=== PATIENT | female | born 1985 | race Caucasian/White ===

== ENCOUNTER 2021-06-17 12:58 | Outpatient (CLI) | payer OTHER, SELFPAY ==
--- NOTE | ~2021-06-17 | MMUS_ITS ---
EXAMINATION: MM diagnostic sonja BI w ila, US breast RT complete HISTORY: Palpable right breast lump TECHNIQUE: Additional 3-D tomosynthesis images of the breasts were performed and synthetic 2-D images were generated. CAD analysis was submitted and interpreted. High resolution complete right breast ul trasound was performed. COMPARISON: None BREAST PARENCHYMAL COMPOSITION: The breasts are extremely dense, which lowers the sensitivity of mamm ography. FINDINGS: MAMMOGRAPHIC FINDINGS: There are no suspicious masses, calcifications or architectural distortion in the right breast to sug gest malignancy. ULTRASOUND: Limited right breast ultrasound: At 2:00, 3 cm from the nipple, there is a 4 mm cyst. No suspicious m asses are identified in the right breast to suggest malignancy. IMPRESSION: 1. No evidence for malignancy in either breast. 2. Recommend follow-up clinical management for palpable right breast abnormality. Recommend follow-up mammogram at age 40, unless earlier clinically indicated. BI-RADS Category 2: Benign finding(s). Reviewed, dictated and finalized at location A. IMPRESSION: 1. No evidence for malignancy in either breast. 2. Recommend follow-up clinical management for palpable right breast abnormalit y. Recommend follow-up mammogram at age 42, unless earlier clinically indicated . BI-RADS Category 2: Benign finding(s).
== END 2021-06-17 12:59 | disposition home or self-care (01) ==
PROVIDERS: PCP Student in an Organized Health Care Education/Training Program; Visit Provider Student in an Organized Health Care Education/Training Program
DX: N63.10 Unspecified lump in the right breast, unspecified quadrant (principal); N60.01 Solitary cyst of right breast
CPT/HCPCS: 76641; 77062; 77066; G0279

== ENCOUNTER 2022-12-15 11:09 | Outpatient (CLI) | payer OTHER, SELFPAY ==
[2022-12-15 11:59] LABS: Beta HCG Quantitative 52.79 mIU/ML
[2022-12-21 22:05] LABS: Progesterone 13.7 ng/mL (***)
== END 2022-12-15 11:10 | disposition home or self-care (01) ==
LOC: ANHLAB 11:10
PROVIDERS: PCP Student in an Organized Health Care Education/Training Program; Visit Provider Obstetrics & Gynecology
DX: O09.299 Supervision of pregnancy with other poor reproductive or obstetric history, unspecified trimester (principal)
CPT/HCPCS: 36415; 84144; 84702

== ENCOUNTER 2022-12-17 16:34 | Outpatient (CLI) | payer OTHER, SELFPAY ==
[2022-12-17 17:22] LABS: Beta HCG Quantitative 189.83 mIU/ML
== END 2022-12-17 16:35 | disposition home or self-care (01) ==
PROVIDERS: PCP Student in an Organized Health Care Education/Training Program; Visit Provider Obstetrics & Gynecology
DX: O09.299 Supervision of pregnancy with other poor reproductive or obstetric history, unspecified trimester (principal)
CPT/HCPCS: 36415; 84702

== ENCOUNTER → 2022-12-26 15:11 | Outpatient (CLI) | payer OTHER, SELFPAY ==
--- NOTE | ~2022-12-26 | US_ITS ---
EXAMINATION: US OB <=14 wk fetus w TV DATE: 12/26/2022 15:36 INDICATION: Establish dating of during first trimester TECHNIQUE: Real-time pelvic ultrasound utilizing both a transvaginal and transabdominal probe was pe rformed. The interpreting radiologist was not present for the study. COMPARISON: None. FINDINGS: The uterus measures 6.9 x 4.9 x 5.1 cm. There is by 5 mm intrauterine gestational sac with double de cidua sign but no discernible yolk sac or pole yet apparent.The mean sac diameter measures 6 mm , which is too small for accurate assessment for estimated gestational age. heart motion is abigail ntified measuring beats per minute (bpm) by M-mode Doppler. A couple small anechoic nabothian cysts m easuring up to 5 mm at the cervix. The right ovary is not visualized. The left ovary measures 5.9 x 2.9 x 3.7 cm. There is a 2.7 similar anechoic likely corpus luteum cyst in the left ovary There is no free fluid in the pelvis. IMPRESSION: 1. Single 6 mm intrauterine gestational sac which is below level for accurate assessment of estimated gestational age and with no evident yolk sac or pole also likely due to early stage of pregnan cy. Could consider repeat imaging in 1-2 weeks to assess for the estimated gestational age. Reviewed, dictated and finalized at location B. AL EVISCERATOR IMPRESSION: 1. Single 6 mm intrauterine gestational sac which is below level for accurate a ssessment of estimated gestational age and with no evident yolk sac or po le also likely due to early stage of . Could consider repeat imaging i n 1-2 weeks to assess for the estimated gestational age.
== END ==
PROVIDERS: Visit Provider Obstetrics & Gynecology
DX: O09.299 Supervision of pregnancy with other poor reproductive or obstetric history, unspecified trimester (principal); Z3A.00 Weeks of gestation of pregnancy not specified
CPT/HCPCS: 76801; 76817

== ENCOUNTER → 2023-01-05 15:13 | Outpatient (CLI) | payer OTHER, SELFPAY ==
--- NOTE | ~2023-01-05 | US_ITS ---
EXAMINATION: US OB <=14 wk fetus w TV DATE: 01/05/2023 15:46 INDICATION: Dating and supervision of during first trimester TECHNIQUE: Real-time pelvic ultrasound utilizing both a transvaginal and transabdominal probe was pe rformed. The interpreting radiologist was not present for the study. COMPARISON: None. FINDINGS: The uterus measures 7.6 x 5.2 x 5.5 cm. There is an intrauterine gestational sac. A yolk sac and fet al pole are identified. The crown rump length measures 4 mm, which correlates with an estimated gesta tional age of 6 weeks and 1 days. heart motion is identified measuring 120 beats per minute (bp m) by M-mode Doppler. 10 mm anechoic nabothian cyst at the cervix. The right ovary is not visualized. The left ovary measures 6.6 x 3.5 x 3.3 cm. 1.8 cm anechoic likely corpus luteum cyst in the left ovary. Vascular flow identified in the left ovary on color Doppler. T here is no free fluid in the pelvis. IMPRESSION: 1. Single living fetus with heart rate of 120 bpm. 2. Gestational age by ultrasound of 6 weeks 1 day(s) +/- 4 day(s) with ultrasound estimated date of delivery (ELLA) of 08/30/2023. Reviewed, dictated and finalized at location A. SPINNING MACHINE OPERATOR IMPRESSION: 1. Single living fetus with heart rate of 120 bpm. 2. Gestational age by ultrasound of 6 weeks 1 day(s) +/- 4 day(s) with ultraso und estimated date of delivery (ELLA) of 08/30/2023.
== END ==
PROVIDERS: PCP Obstetrics & Gynecology; Visit Provider Obstetrics & Gynecology
DX: O28.3 Abnormal ultrasonic finding on antenatal screening of mother (principal)
CPT/HCPCS: 76801; 76817

== ENCOUNTER 2023-01-05 16:07 | Outpatient (CLI) | payer OTHER, SELFPAY | END 2023-01-05 16:08 | disposition home or self-care (01) | PROVIDERS: PCP Obstetrics & Gynecology; Visit Provider Obstetrics & Gynecology | DX: O09.299 Supervision of pregnancy with other poor reproductive or obstetric history, unspecified trimester (principal) | CPT/HCPCS: 36415; 84702 ==

== ENCOUNTER 2023-07-07 11:23 | Outpatient (CLI) | payer OTHER, SELFPAY ==
[2023-07-07 11:42] LABS: Basophils Absolute Auto 0.1 K/mm3 (0.0-0.1); Basophils Percent Auto 0.4 % (0.2-1.2); Eosinophils Absolute Auto 0.3 K/mm3 (0-0.3); Eosinophils Percent Auto 2.1 % (0-4.4); Hematocrit 29.6 % (37.0-47.0); Hemoglobin 9.3 g/dL (12.0-15.0); Immature Granulocyte Absolute 0.51 K/mm3 (0.00-0.031); Immature Granulocyte Percent A 4.1 % (0-0.5); Lymphocytes Absolute Auto 1.22 K/mm3 (0.9-3.2); Lymphocytes Percent Auto 9.7 % (18.3-44.2); Mean Corpuscular HGB Conc 31.4 g/dl (32-36); Mean Corpuscular Hemoglobin 28.4 pg (26-34); Mean Corpuscular Volume 90.5 fl (80-100); Mean Platelet Volume 10.8 fl (7.4-10.4); Monocytes Absolute Auto 1.1 K/mm3 (0.1-0.6); Monocytes Percent Auto 8.4 % (2.6-8.5); Neutrophils Absolute Auto 9.4 K/mm3 (1.3-6.7); Neutrophils Percent Auto 75.3 % (45.5-73.1); Platelet Count Result 207 k/mm3 (150-375); Red Blood Count 3.27 M/mm3 (4.2-5.4); Red Cell Distribution Width 14.1 % (11.5-14.5); White Blood Count 12.5 K/mm3 (4.5-10.0)
[2023-07-07 12:38] LABS: HIV 1/2 Ab P24 Ag Result Negative (Negative)
[2023-07-08 13:49] LABS: Rapid Plasma Reagin Non-Reactive (NonReactive)
== END 2023-07-07 11:24 | disposition home or self-care (01) ==
PROVIDERS: PCP Obstetrics & Gynecology; Visit Provider Registered Nurse
DX: Z34.90 Encounter for supervision of normal pregnancy, unspecified, unspecified trimester (principal); Z3A.00 Weeks of gestation of pregnancy not specified
CPT/HCPCS: 36415; 85025; 86592; 86703; G0432

== ENCOUNTER 2023-08-14 22:33 | Inpatient (IN) | payer OTHER, SELFPAY ==
[2023-08-14 23:19] VITALS: RESP 16; TEMP 36.7; O2SAT 100
[2023-08-14 23:29] VITALS: BMI 29.2
[2023-08-14 23:31] VITALS: BP 119/67; PULSE 84
[2023-08-14 23:50] VITALS: BP 118/49; PULSE 82
[2023-08-15] VITALS (186 sets, daily range): BP systolic 82–157; BP diastolic 32–140; PULSE 63–269; RESP 15–18; TEMP 36.1–37.7; O2SAT 79–100
[2023-08-15 00:11] LABS: Basophils Absolute Auto 0.1 K/mm3 (0.0-0.1); Basophils Percent Auto 0.4 % (0.2-1.2); Eosinophils Absolute Auto 0.3 K/mm3 (0-0.3); Eosinophils Percent Auto 2.1 % (0-4.4); Hematocrit 37.1 % (37.0-47.0); Hemoglobin 12.1 g/dL (12.0-15.0); Immature Granulocyte Absolute 0.17 K/mm3 (0.00-0.031); Immature Granulocyte Percent A 1.4 % (0-0.5); Lymphocytes Absolute Auto 1.51 K/mm3 (0.9-3.2); Lymphocytes Percent Auto 12.9 % (18.3-44.2); Mean Corpuscular HGB Conc 32.6 g/dl (32-36); Mean Corpuscular Hemoglobin 31.3 pg (26-34); Mean Corpuscular Volume 95.9 fl (80-100); Mean Platelet Volume 11.9 fl (7.4-10.4); Monocytes Percent Auto 8.8 % (2.6-8.5); Neutrophils Absolute Auto 8.7 K/mm3 (1.3-6.7); Neutrophils Percent Auto 74.4 % (45.5-73.1); Platelet Count Result 178 k/mm3 (150-375); Red Blood Count 3.87 M/mm3 (4.2-5.4); Red Cell Distribution Width 19.4 % (11.5-14.5); White Blood Count 11.7 K/mm3 (4.5-10.0)
[2023-08-15] MEDS: AMPICILLIN 2 GM/NS 100 ML 2 GM/100 ML BAG IVPB (00:19)
[2023-08-15] MEDS: LACTATED RINGERS 1,000 ML 125 ML IV CONT ×3 (00:19→12:59)
[2023-08-15] MEDS: OXYTOCIN 30 UNITS/NS 500 ML 30 UNITS/500 ML BAG IV CONT (02:08)
[2023-08-15] MEDS: AMPICILLIN 1 GM/NS 50 ML 1 GM/50 ML BAG IVPB ×3 (03:42→12:59)
--- NOTE | 2023-08-15 06:38 | WPDANESEPP ---
Anes - Eval Pre Procedure Procedure: Labor epidural Date/Time: 08/15/23 06:38 Pre Op Diagnosis: SROM Patient Data Age: 37 Gender: F Height: 1.6 m Weight: 75 kg Last Vital Signs Temp 36.1 C L 08/15/23 05:30 Pulse 87 08/15/23 05:36 Resp 16 08/14/23 23:19 BP 117/73 08/15/23 05:36 Pulse Ox 100 08/14/23 23:19 O2 Del Method Room Air 08/14/23 23:41 Allergies Allergy/AdvReac Type Severity Reaction Status Date / Time ondansetron Allergy Unknown HIVES Verified 08/12/23 07:53 Home Medications Medication Instructions Recorded Confirmed Type cetirizine 10 mg capsule 10 mg PO DAILY PRN allergies 03/01/21 08/07/23 History cholecalciferol (vitamin D3) 50 50 mcg PO DAILY 01/15/23 08/07/23 History mcg (2,000 unit) capsule prenat.vits,vanessa,hex-owne-ntdvs 1 tablet PO DAILY 01/15/23 08/07/23 History ferrous sulfate 325 mg (65 mg 325 mg PO BID 06/11/23 08/07/23 History iron) tablet albuterol sulfate 90 mcg/actuation 1 puff inhalation Q4H PRN Wheezing 06/15/23 08/07/23 History aerosol inhaler (ProAir HFA) docusate sodium 100 mg capsule 100 mg PO DAILY 08/07/23 08/07/23 History (Colace) Laboratory Tests 08/14/23 23:37 WBC 11.7 H K/mm3 (4.5-10.0) RBC 3.87 L M/mm3 (4.2-5.4) Hgb 12.1 g/dL (12.0-15.0) Hct 37.1 % (37.0-47.0) MCV 95.9 fl (80-100) MCH 31.3 pg (26-34) MCHC 32.6 g/dl (32-36) RDW 19.4 H % (11.5-14.5) Plt Count 178 k/mm3 (150-375) MPV 11.9 H fl (7.4-10.4) Immature Gran % (Auto) 1.4 H % (0-0.5) Neut % (Auto) 74.4 H % (45.5-73.1) Lymph % (Auto) 12.9 L % (18.3-44.2) Isabella % (Auto) 8.8 H % (2.6-8.5) Eos % (Auto) 2.1 % (0-4.4) Baso % (Auto) 0.4 % (0.2-1.2) Lymph # (Auto) 1.51 K/mm3 (0.9-3.2) Isabella # (Auto) 1.0 H K/mm3 (0.1-0.6) Eos # (Auto) 0.3 K/mm3 (0-0.3) Baso # (Auto) 0.1 K/mm3 (0.0-0.1) Abs Immat Gran (auto) 0.17 H K/mm3 (0.00-0.031) Absolute Neuts (auto) 8.7 H K/mm3 (1.3-6.7) Absolute Nucleated RBC 0.0 K/mm3 (0.0-0.012) Nucleated RBC % 0.0 % (0.0-0.2) RPR Pending Blood Type O Positive Antibody Screen Negative Patient hx anesthesia problems: none Family hx anesthesia problems: none Results Review: All pre-operative results and documents have been reviewed as part of the pre-operative evaluation. [facility] Past Medical History Medical History Abnormal Pap smear of cervix 03/22/21, ASC-US, HPV pos Anxiety Asthma Environmental allergies History of miscarriage x2 History of vaginal delivery x 2 Surgical History Surgical History H/O arthroscopic knee surgery x2 History of colposcopy 04/05/21, no transformation zone [place] teeth removed 2008 Family History Family History Mother Anxiety Depression Asthma Grandparent Hypertension Thyroid disorder Sibling Asthma Social History Social History Smoking status: Never smoker Alcohol intake: never Substance use: never Lack of Transportation: No Lack of Food: Never True Current Housing: I Have Housing Concerned About Future Housing: No Difficulty Paying Gas/Electric Bills: No Difficulty Paying for Meds: No Currently Unemployed: No Education: Bachelor's Degree Difficulty w/ Childcare or Family Care: YES Living arrangements: with family Gender identity (if verbalized by the patient): Female Sexual Orientation (if Verbalized by the Patient): Straight or Heterosexual Spiritual care concerns: No Exam Day of Procedure 08/15/23 06:38 Patient weight: overweight Heart: regular rate and rhythm Lungs: normal air movement Airway: Mallampati scale Neurological: alert and oriented
[2023-08-15] MEDS: TERBUTALINE SULFATE 1 MG/ML VIAL 0.25 MG SUB-Q (13:50)
[2023-08-15] MEDS: SODIUM CHLORIDE 0.9% IV 300 ML 600 ML I-UTERINE (14:40)
[2023-08-15] MEDS: AZITHROMYCIN 500 MG/NS 250 ML 500 MG/250 ML BAG 250 MG IVPB (15:46)
--- NOTE | 2023-08-15 15:47 | WPDOBADMIT ---
Obstetrics - Admit Note Admission Note: record reviewed. No pertinent additions to the history and/or any subsequent changes in the physical findings that are not consistent with the expected course of the were found. Additions to the history and/or subsequent changes in the physical findings follow. None.
--- NOTE | 2023-08-15 15:47 | WPDHPUPDATE1 ---
History and Physical Update Update Date/Time: 08/15/23 15:47 37-year-old 3 para 2021 presented earlier today with rupture membranes and active labor. Have progressed to 8cm and has not progressed past 8cm for last 3hours, in addition to now tracing with increasing baseline and minimal variability. This has been discussed with the patient and agrees to proceed with delivery. History and Physical has been reviewed, including an updated exam of the patient. There are NO changes in the patient's condition. Risks, benefits, and alternatives have been discussed and questions answered. Patient agrees to proceed with procedure.
[2023-08-15] MEDS: FAMOTIDINE 20 MG/2 ML VIAL (15:58)
[2023-08-15] MEDS: ceFAZolin 2 GM/D5W 50 ML 2 GM/50 ML BAG IVPB (15:58)
--- NOTE | 2023-08-15 16:37 | P.PCNOB_ITS ---
OB - Delivery Note Procedure Procedure: Procedures Operation Date: 08/15/23 16:00 <No data on this case meets the specified criteria> Intrapartal Events: Arrest of Dilation and Non-Reassuring Status Delivery augmentation: Pitocin Delivery monitor: External FHT and Internal Uterine Route of delivery: Prior to decision for section, ACOG/SMFM labor guidelines were considered and discussed with the patient and staff. Decision made to proceed with the section.: Yes Specimen: Yes Quantitative Blood Loss (ml): 670 Anesthesia type: Epidural Disposition: Floor Complications: None Narrative: Patient prepped draped usual manner this procedure. Pfannenstiel incision was made and carried down to the fascia. This was then extended bilaterally the length of the skin incision. Superiorly and inferiorly dissected away from the rectus muscles which were then the peritoneum was entered without difficulty. Bladder flap was developed the uterus was scored with clear fluid noted vertex was delivered in occiput posterior position nuchal cord was noted and reduced. Rest of baby was delivered cord clamped and cut baby was passed off the operative field. Uterus was manually extracted and the membranes and clots were cleared of the uterus. Uterus was exteriorized with tubes noted without abnormality no other gross abnormalities noted. Uterine incision was approximated 0 Monocryl running interlocking manner with good approximation hemostasis noted. Uterus was turned to the abdomen and no bleeding of the uterine incision was noted. All subfascial tissue was noted be hemostatic and all clots removed. Fascia was approximated using 0 Vicryl from the left angle midline and the right angle to midline with good approximation and hemostasis. 0 plain was then used to approximate the subcutaneous layer. [place] were then used to approximate the skin. Patient was sent to recovery room in stable cond ition. [place] Baby Weeks of gestation at delivery: 38 gender: Male presentation: vertex position: Left Occiput Posterior Placenta delivery description: Manual Removal Cord Vessel Description: 3 Vessels, Nuchal Cord and Reduced AMG Delivery Billing Delivery Delivery: Delivery Charge
[2023-08-15] MEDS: OXYTOCIN 30 UNITS/NS 500 ML 30 UNITS/500 ML BAG 125 UNITS IV CONT (18:02)
[2023-08-15] MEDS: MORPHINE SULFATE INJ (*CRX) 10 MG/ML AMP 2 MG IV PUSH ×2 (18:44→19:50)
--- NOTE | 2023-08-15 19:52 | OBPPTRN ---
Patient transferred to post room #287 via (stretcher ). Support person present. Oriented to unit, room, information board, rooming in, admission packet and security measures. Patient verbalizes understanding.
[2023-08-15] MEDS: KETOROLAC 30 MG/ML VIAL (*BKC) IV PUSH (22:20)
[2023-08-15] MEDS: DEXTROSE 5%/0.45% SOD CHL 1,000 ML 125 ML IV CONT (22:21)
[2023-08-16 04:00] VITALS: BP 102/61; PULSE 81; RESP 18; TEMP 36.8; O2SAT 98
[2023-08-16] MEDS: KETOROLAC 30 MG/ML VIAL (*BKC) IV PUSH (04:24)
[2023-08-16 05:08] LABS: Basophils Percent Auto 0.2 % (0.2-1.2); Eosinophils Percent Auto 0.2 % (0-4.4); Hematocrit 31.4 % (37.0-47.0); Hemoglobin 10.1 g/dL (12.0-15.0); Immature Granulocyte Absolute 0.14 K/mm3 (0.00-0.031); Immature Granulocyte Percent A 0.7 % (0-0.5); Lymphocytes Percent Auto 4.6 % (18.3-44.2); Mean Corpuscular HGB Conc 32.2 g/dl (32-36); Mean Corpuscular Hemoglobin 31.1 pg (26-34); Mean Corpuscular Volume 96.6 fl (80-100); Mean Platelet Volume 11.5 fl (7.4-10.4); Monocytes Absolute Auto 1.3 K/mm3 (0.1-0.6); Monocytes Percent Auto 6.5 % (2.6-8.5); Neutrophils Absolute Auto 17.1 K/mm3 (1.3-6.7); Neutrophils Percent Auto 87.8 % (45.5-73.1); Platelet Count Result 144 k/mm3 (150-375); Red Blood Count 3.25 M/mm3 (4.2-5.4); Red Cell Distribution Width 19.4 % (11.5-14.5); White Blood Count 19.5 K/mm3 (4.5-10.0)
[2023-08-16 08:30] VITALS: BP 93/55; PULSE 90; RESP 16; TEMP 36.8; O2SAT 98
--- NOTE | 2023-08-16 10:11 | PM.GYNPNOP ---
SHOE STAMPER - A/P Postoperative Procedures: Procedures Operation Date: 08/15/23 16:00 Actual Procedure Side Surgeon p Section Not Applicable Joey Phillips MD Time Spent With Patient Time: Total time spent is greater than 50% in coordination of care (as documented) at patient's floor/unit and/or counseling patient: Time with patient: less than 15 minutes SHOE STAMPER- PN:Subj Post-Op Subjective Date/time seen: 08/16/2023 Postop day 1 Tolerating regular diet, pain well controlled. Overall doing well. Vital signs stable afebrile Abdomen positive bowel sounds soft Labs noted Assessment/plan: Routine care/postoperative care. SHOE STAMPER - PN: Obj Data Vital Signs Vital Signs: Vital Signs - 24 hr 08/15/23 10:12 08/15/23 10:16 08/15/23 10:20 Temperature Pulse Rate 88 86 93 Respiratory Rate Blood Pressure 119/66 115/59 L 121/64 Pulse Oximetry 99 Oxygen Delivery 08/15/23 10:21 08/15/23 10:26 08/15/23 10:31 Temperature Pulse Rate 88 90 Respiratory Rate Blood Pressure 82/50 L 113/57 L Pulse Oximetry 100 100 100 Oxygen Delivery 08/15/23 10:32 08/15/23 10:35 08/15/23 10:36 Temperature Pulse Rate 82 83 Respiratory Rate Blood Pressure 104/62 105/62 Pulse Oximetry 100 Oxygen Delivery 08/15/23 10:40 08/15/23 10:45 08/15/23 10:46 Temperature Pulse Rate 92 91 90 Respiratory Rate Blood Pressure 110/63 113/88 112/60 Pulse Oximetry 100 99 Oxygen Delivery 08/15/23 10:50 08/15/23 10:51 08/15/23 10:55 Temperature Pulse Rate 82 84 Respiratory Rate Blood Pressure 114/61 119/57 L Pulse Oximetry 100 100 Oxygen Delivery 08/15/23 11:00 08/15/23 11:05 08/15/23 11:06 Temperature 97.2 F L Pulse Rate 136 H 95 Respiratory Rate Blood Pressure 131/93 H 115/72 Pulse Oximetry 100 99 Oxygen Delivery 08/15/23 11:10 08/15/23 11:15 08/15/23 11:20 Temperature Pulse Rate 89 85 83 Respiratory Rate Blood Pressure 109/69 115/70 116/66 Pulse Oximetry 100 100 100 Oxygen Delivery 08/15/23 11:25 08/15/23 11:26 08/15/23 11:30 Temperature Pulse Rate 84 Respiratory Rate Blood Pressure 116/64 Pulse Oximetry 100 99 Oxygen Delivery 08/15/23 11:31 08/15/23 11:35 08/15/23 11:40 Temperature Pulse Rate 86 89 Respiratory Rate Blood Pressure 115/69 114/72 Pulse Oximetry 99 100 Oxygen Delivery 08/15/23 11:41 08/15/23 11:45 08/15/23 11:46 Temperature Pulse Rate 82 89 Respiratory Rate Blood Pressure 106/32 L 109/73 Pulse Oximetry 100 Oxygen Delivery 08/15/23 12:06 08/15/23 12:08 08/15/23 12:11 Temperature Pulse Rate 87 Respiratory Rate Blood Pressure 115/72 Pulse Oximetry 99 99 Oxygen Delivery 08/15/23 12:16 08/15/23 12:21 08/15/23 12:26 Temperature Pulse Rate 81 Respiratory Rate Blood Pressure 113/65 Pulse Oximetry 98 97 98 Oxygen Delivery 08/15/23 12:31 08/15/23 12:36 08/15/23 12:41 Temperature Pulse Rate 77 Respiratory Rate Blood Pressure 114/65 Pulse Oximetry 98 98 98 Oxygen Delivery 08/15/23 12:46 08/15/23 12:51 08/15/23 12:56 Temperature Pulse Rate 77 Respiratory Rate Blood Pressure 113/69 Pulse Oximetry 98 98 99 Oxygen Delivery 08/15/23 13:01 08/15/23 13:06 08/15/23 13:11 Temperature Pulse Rate 83 Respiratory Rate Blood Pressure 116/78 Pulse Oximetry 99 98 97 Oxygen Delivery 08/15/23 13:16 08/15/23 13:21 08/15/23 13:26 Temperature Pulse Rate 85 Respiratory Rate Blood Pressure 117/68 Pulse Oximetry 98 97 99 Oxygen Delivery 08/15/23 13:30 08/15/23 13:31 08/15/23 13:25 Temperature 97.2 F L Pulse Rate 100 Respiratory Rate Blood Pressure 116/64 Pulse Oximetry 99 Oxygen Delivery 08/15/23 13:36 08/15/23 13:39 08/15/23 13:41 Temperature Pulse Rate 86 Respiratory Rate Blood Pressure 132/110 H Pul
[2023-08-16] MEDS: MULTIVIT/MIN/PREN/FOL AC/IRON TABLET 1 TAB PO (11:42)
[2023-08-16] MEDS: IBUPROFEN 600 MG TABLET PO ×2 (11:42→18:38)
[2023-08-16] MEDS: DOCUSATE SODIUM 100 MG CAPSULE PO ×2 (11:42→18:39)
[2023-08-16] MEDS: CHOLECALCIFEROL 1,000 UNITS TABLET 2000 UNITS PO (11:42)
--- NOTE | 2023-08-16 13:21 | WPDANLDPN2 ---
Anes-Prog Note L&D Date/Time: 08/16/23 13:21 Comfortable throughout: labor and section Neuraxial method: epidural Epidural/Spinal procedure site: clean & non-tender Neuro status: Neuro function grossly intact. Cardiovascular status: normal Respiratory status: normal Airway patency: baseline Mental status: baseline Post-Op hydration status: normal Vital Signs: Last Vital Signs Temp 36.8 C 08/16/23 04:00 Pulse 81 08/16/23 04:00 Resp 18 08/16/23 04:00 BP 102/61 08/16/23 04:00 Pulse Ox 98 08/16/23 04:00 O2 Del Method Room Air 08/15/23 19:50 Pain score (VAS): 3 I/O: Intake & Output 08/15/23 08/16/23 08/16/23 23:59 07:59 15:59 Intake Total 100 Output Total 813 1000 Balance -713 -1000 Post-procedural complaints: none Patient feedback: Patient satisfied with anesthetic care.
--- NOTE | 2023-08-16 13:21 | WPDANLDNPN2 ---
Anes-Prog Note L&D-Neuraxial Date/Time: 08/16/23 13:21 Neuraxial medications: epidural PF morphine Opiod-related complaints: pruritis Patient feedback: Patient satisfied with post-operative pain management.
[2023-08-16 13:30] VITALS: BP 99/54; PULSE 84; RESP 16; TEMP 36.6; O2SAT 99
[2023-08-16 19:12] VITALS: BP 94/53; PULSE 50; RESP 18; TEMP 37.2; O2SAT 100
[2023-08-17] MEDS: IBUPROFEN 600 MG TABLET PO ×3 (04:25→17:17)
[2023-08-17 08:30] VITALS: BP 99/50; PULSE 97; RESP 16; TEMP 36.1; O2SAT 97
[2023-08-17] MEDS: CHOLECALCIFEROL 1,000 UNITS TABLET 2000 UNITS PO (08:30)
[2023-08-17] MEDS: MULTIVIT/MIN/PREN/FOL AC/IRON TABLET 1 TAB PO (08:31)
[2023-08-17] MEDS: DOCUSATE SODIUM 100 MG CAPSULE PO (08:31)
[2023-08-17] MEDS: ACETAMINOPHEN 325 MG TABLET 650 MG PO ×2 (08:32→18:50)
--- NOTE | 2023-08-17 09:09 | PM.OBPNVD ---
OB - PN: Subj Subjective Date/time seen: 08/17/23 09:09 Narrative: POD#2 Xenia reports doing well today. 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 Her pain is not fully controlled, but has not tried the [place] yet. She is tolerating regular diet, voiding, passing gas, and ambulating without issues. She denies any issues with her incision. She is breast feeding. OB - PN: Obj Data Labs 08/16/23 04:34 OB - PN A/P Assessment and Plan (1) S/P section: Code(s): Z98.891 - History of uterine scar from previous surgery Status: Acute Plan day: 2 Plan: routine care and discharge home (tomorrow) Comments: - encouraged to take PO norco; at least 5mg every 4-6 hours to help with pain control (epidural has fully worn off now) - hydration/ambulation encouraged - consult Time Spent With Patient Time: Total time spent is greater than 50% in coordination of care (as documented) at patient's floor/unit and/or counseling patient: Review of Systems Constitutional: Constitutional: Denies chills, Denies fever(s) and Denies headache(s) Eyes: Eyes: Denies change in vision ENT: Denies dizziness and Denies headache(s) Cardiovascular: Cardiovascular: Denies chest pain, Denies palpitations and Denies dyspnea Respiratory: Respiratory: Denies cough and Denies dyspnea Gastrointestinal: Gastrointestinal: Denies nausea and Denies vomiting Genitourinary: Comments: normal bleeding Neurologic: Denies dizziness and Denies headache(s) Endocrine: Endocrine: Denies palpitations Exam Const: General: cooperative, comfortable and no acute distress Orientation/consciousness: patient oriented x3 Resp: Effort & Inspection: normal respiratory effort Auscultation: clear to auscultation bilaterally Cardio: Rate: regular rate GI: Inspection: non-distended and incision (covered with clean dressing) GI Palp: Yes abdominal tenderness (appropriate) and Yes Soft to palpation Auscultation: normal bowel sounds : Other: fundus firm Skin: General skin exam: normal color Neuro: General: patient oriented x3 Extrem: General: normal to inspection Psych: Appearance: grossly normal Affect: normal affect Attitude: cooperative
[2023-08-17 10:30] LABS: Rapid Plasma Reagin Non-Reactive (NonReactive)
[2023-08-17] MEDS: SIMETHICONE 80 MG TAB.CHEW PO ×2 (13:30→17:17)
[2023-08-17 19:00] VITALS: BP 110/60; PULSE 65; RESP 17; TEMP 36.8; O2SAT 100
[2023-08-18] MEDS: IBUPROFEN 600 MG TABLET PO ×2 (00:23→08:32)
[2023-08-18] MEDS: ACETAMINOPHEN 325 MG TABLET 650 MG PO ×2 (04:44→11:58)
[2023-08-18] MEDS: DOCUSATE SODIUM 100 MG CAPSULE PO (08:31)
[2023-08-18] MEDS: MULTIVIT/MIN/PREN/FOL AC/IRON TABLET 1 TAB PO (08:31)
[2023-08-18] MEDS: CHOLECALCIFEROL 1,000 UNITS TABLET 2000 UNITS PO (08:31)
[2023-08-18] MEDS: SIMETHICONE 80 MG TAB.CHEW PO (08:43)
[2023-08-18 08:50] VITALS: BP 110/63; PULSE 76; RESP 16; TEMP 36.9; O2SAT 100
--- NOTE | 2023-08-18 09:34 | PM.OBDSVD ---
DS: Admitting Diagnosis Discharge Date August 18, 2023 Admitting Diagnosis Labor DS: Discharge Diagnosis Discharge Diagnosis Plan Failure to progress 1. 2. intolerance to labor OB - DS: Summary Hospital Course Hospital Course: She was admitted in active labor. Labor course significant for failure to progress for which she had an uncomplicated primary section. She did well post op. She was ambulating well, had adequate pain control, positive flatus prior to discharge. Baby did well. Discharge precautions discussed. OB Procedures : Ultrasound OB Procedures Intrapartum: OB Procedures: : None Peripartum Data Infant Delivery Method: Section Procedures: Procedures Operation Date: 08/15/23 16:00 Actual Procedure Side Surgeon p Section Not Applicable Joey Phillips MD complications: none Status at Discharge Functional status at discharge: independent ambulation Time Spent with Patient Time attestation: Total time spent providing and/or coordinating discharge services: Exam Const: General: cooperative Orientation/consciousness: oriented to person, oriented to place and oriented to time HENMT: Face/Nose/Sinus: Normal external nose present Eyes: General: appearance normal, both eyes and all related structures Resp: Effort & Inspection: normal respiratory effort GI: Inspection: normal to inspection Other: Fundus -1 umbilicus firm nontender incision healing well vinicio intact no drainage or erythema Skin: General skin exam: normal color Neuro: General: oriented to person, oriented to place and oriented to time Extrem: General: normal to inspection and no calf tenderness Psych: Appearance: grossly normal Mental Status: mental status grossly normal DS: Data Data Completed and Pending Pending studies at discharge: Pending at discharge 08/15/23 17:33 Surgical [PTH] Routine Labs on day of discharge: Labs from last 24 hours 08/14/23 23:37 RPR Non-reactive Discharge Plan Discharge Attending physician on discharge: Bony Bolivar Consulting providers: Jory Luque; June Hoang; Aubrie Wilder Discharging Clinician: Bony Bolivar Anticipated Discharge Date/Time: 08/18/23 09:30 Patient Disposition: Home, Self-Care Activity: may shower, no driving and pelvic rest Diet: regular Discharge Instructions: Education: Mom and Baby Guide Given to: Mother Follow-Up: Call your delivering provider's office for an appointment to be seen in: 2 Weeks Mom and baby should come to the [facility] for the follow-up appointment. Appointment Date/Time: August 19, 2023 at 9:00 am What to expect at your follow-up visit: Physical Assessment Call [phone] if you are unable to keep your appointment time. BREAST CARE: * Wear a snug supportive bra. * For engorgement discomfort: Breast Feeding: * Apply warm moist washcloths * Express milk as needed to relieve engorgement * Wear loose clothing * For sore nipples: * Identify correct latch-on * Apply warm moist washcloths before and after nursing * Air dry nipples after nursing * May apply Lansinoh cream to nipples ABDOMINAL INCISION: (if applicable) * Allow incision to air dry * Do NOT use lotions for powders on your incision * When showering, allow soap and water to run over the incision, but do not wash incision EPISIOTOMY/PERINEAL CARE: * Until bleeding stops, use your asael bottle after urinating * Change your pad frequently throughout the day * No tub baths until seen by your physician - You may shower ACTIVITY: * Rest as much as possible. * Do not exercise or lift anything heavier than your baby (such as laundry or other children.) * Avoid stairs or driving as much as possible. * Do not put anything into the va
--- NOTE | 2023-08-18 13:09 | PC.NURSE ---
Patient instructed to view the discharge video Mother & Baby Care, The First Two Weeks . Patient was given the opportunity and encouraged to ask questions. Patient verbalized understanding of information shared and has been given the mother/baby guide for home reference.
--- NOTE | 2023-08-18 16:23 | PC.NURSE ---
[id number] Introductions were made, then consulted with patient to assess needs related to . Mother led the conversation with her?plans to feed?her infant, the?experience so far and decline assistance with at this time. We discussed milk production, how to protect her milk supply, good positioning and how to know the pump flange fits well. Resources provided for inpatient and outpatient services with the feeding sheet, mom/baby guide and name written on the white board. Mother voiced understanding of information and will call if there is a request for assistance.
[2023-08-19 09:33] VITALS: BP 110/62; PULSE 79; RESP 18; TEMP 36.9; O2SAT 100
--- OUTSIDE RECORDS SUMMARY | 2023-09-01 12:00 | XMS_ITS | Patient Health Record ---
Author Name Unknown Organization [facility] Address [address] [place] [address] Care Team Providers Care Grocery Worker Name Role Phone Anitra Sharma Primary Care Provider Silvestre Lundberg Unavailable [phone] ALLERGIES Allergen (clinical drug ingredient) Drug/Non Drug Allergy documented on EMR Reaction Allergy Type Onset Date Status ondansetron ondansetron hives Drug Allergy Act mamta REASON FOR REFERRAL No Information MEDICATIONS Medication SIG (Take, Route, Frequency, Duration) Notes Start Date End Date Status Auvi -Q 0.3 mg as directed intramus cularly once for 30 day(s) 09/26/2021 Active Cetirizine Hydrochloride 10 mg 1 tab(s) orally once a day 09/26/2021 A ctive AeroChamber MDI Spacer - Mouthpiece (Adult) N/A As directed PO Per asthma action plan for 30 day(s) 09/26/2021 Active Albuterol (Eqv-ProAir HFA) 90 mcg/inh 2 puff(s) inhaled every 6 hours for 30 day(s) 09/26/2021 Active ZyrTEC 10 mg 1 tab(s) orally once a day Active Flovent Diskus (obsolete) 250 mcg/inh 1 puff(s) inhaled 2 times a day for 30 day(s) 09/26/2021 Active olopatadine ophthalmic 0.2% 1 gtt in each affected eye once a day for 10 day(s) 09/26/2021 Active Fluticasone Propionate 50 mcg/inh 1 spray(s) in each nostril once a day for 30 day(s) 09/26/2021
== END 2023-08-18 15:25 | disposition home or self-care (01) | DRG 788 ==
LOC: ANHLDR 23:05 → ANHOB2 08-15 19:59
PROVIDERS: Admitting Provider Obstetrics & Gynecology; Visit Provider Obstetrics & Gynecology
PROC: 10D00Z1 Extraction of Products of Conception, Low, Open Approach (ICD-10-PCS; CPT 59514; principal; 2023-08-15 16:00)
DX: O62.0 Primary inadequate contractions (principal); O76 Abnormality in fetal heart rate and rhythm complicating labor and delivery; O69.81X0 Labor and delivery complicated by cord around neck, without compression, not applicable or unspecified; Z3A.38 38 weeks gestation of pregnancy; Z37.0 Single live birth
CPT/HCPCS: 36415; 85025; 86592; 86850; 86900; 86901; 88307; A9270; J0290; J0456; J0690; J1100; J1885; J2270; J2274; J2371; J2590; J2795; J3105; J7030; J7120

== ENCOUNTER 2024-10-20 09:01 | Emergency (ER) | payer OTHER, SELFPAY ==
[2024-10-20 09:18] VITALS: BP 119/60; PULSE 88; RESP 18; TEMP 36.3; O2SAT 100
--- NOTE | 2024-10-20 09:29 | ED_ITS ---
HPI - URI/Sore Throat General Chief Complaint: Upper Respiratory Infection Stated Complaint: poss sinus infection Time Seen by Provider: 10/20/24 09:20 Source: patient and RN notes reviewed Mode of arrival: ambulatory Limitations: no limitations History of Present Illness HPI Narrative: Patient presents today complaining of a 5 day history of nasal congestion and sinus pressure, postnasal drip, with a 2 day history of hoarseness. She also had sore throat for 1 day but this has since resolved. Denies cough, shortness of breath, fever. He she does have history of asthma but has not had to use her rescue inhaler more frequently since becoming ill. She has tried some Tylenol cold and Sinus without much relief. Children have been sick recently with similar symptoms. Related Data Allergies Allergy/AdvReac Type Severity Reaction Status Date / Time ondansetron Allergy Unknown HIVES Verified 10/20/24 09:12 Review of Systems Review of Systems: CONSTITUTIONAL: Denies body aches, fever, chills, or sweats. EYES: Denies visual changes, redness, or discharge. ENT: Denies rhinorrhea, or otalgia.+ congestion, sore throat, postnasal drip, hoarseness CARDIOVASCULAR: Denies chest pain, palpitations, or edema. RESPIRATORY: Denies cough or dyspnea. GASTROINTESTINAL: Denies abdominal pain, nausea, vomiting, or diarrhea. GENITOURINARY: Denies dysuria or hematuria. SKIN: Denies rash, itching, or wounds. MUSCULOSKELETAL: Denies back pain, joint pain, or myalgia. NEUROLOGIC: Denies headache, numbness, tingling, or weakness. PSYCH: Denies depression or anxiety. [facility] Past Medical History Medical History Abnormal Pap smear of cervix 03/22/21, ASC-US, HPV pos Anxiety Asthma BMI 25.0-25.9,adult Environmental allergies History of miscarriage x2 History of vaginal delivery x 2 Surgical History Surgical History Delivery by section (~08/15/23) H/O arthroscopic knee surgery x2 History of colposcopy 04/05/21, no transformation zone [place] teeth removed 2008 Family History Family History Mother Anxiety Depression Asthma Grandparent Hypertension Thyroid disorder Sibling Asthma Father No problems noted. 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 Please see nursing chart for further information. There is no relevant family history pertinent to the presenting complaint Exam Narrative: GENERAL: Well-appearing, well-nourished, and in no acute distress. HEAD: Normocephalic, atraumatic. EYES: EOMI. No redness or drainage. Conjunctivae normal. ENT: Mucous membranes pink and moist. Nares mildly congested. No rhinorrhea. TMs normal bilaterally. Throat normal. Uvula midline. NECK: Normal AROM. Supple. No lymphadenopathy. CHEST: No respiratory distress. Clear to auscultation. HEART: Regular rate and rhythm. No murmur appreciated. EXTREMITIES: Normal range of motion. No edema. SKIN: Warm, dry, no rash. Capillary refill normal. Normal skin turgor. NEURO: No focal deficits. Alert and oriented x3. Gait steady. PSYCH: Normal affect. No signs of depression or anxiety. Course Course Level of Care: Express Care Visit Vital Signs Vital signs: Vital Signs Temperature 97.4 F L 10/20/24 09:18 Pulse Rate 88 10/20/24 09:18 Respiratory Rate 18 10/20/24 09:18 Blood Pressure 119/60 10/20/24 09:18 Pulse Oximetry 100 10/20/24 09:18 Temperature 97.4 F L 10/20/24 09:18 Pulse Rate 88 10/20/24 09:18 Respiratory Rate 18 10/20/24 09:18 Blood Pressure 119/60 10/20/24 09:18 Pulse Oximetry 100 10/20/24 09:18 Reviewed MDM - URI/Sore Throat MDM Narrative Medical decision making narrative: Symptoms likely viral in etiology. Discussed [id number] medication use and duration of illness. Prescription for short course of prednisone sent to pharmacy to help with sinus pressure/congestion. Anticipatory guidance given. Differential Diagnosis Differential diagnosis: Likely upper respiratory infection, sinusitis and viral infection Critical Care Time Critical Care Time Critical Care Time: No Discharge Plan Discharge Clinical Impression: Upper respiratory infection Qualifiers: URI type: unspecified URI Qualified Code(s): J06.9 - Acute upper respiratory in fection, unspecified Patient Disposition: Home, Self-Care Condition: Stable Instructions: Upper Respiratory Infection (DC) Additional Instructions: Your symptoms are likely due to a viral illness, which is not treated with antibiotics. Virus symptoms can last for up to 7-14 days. Take Tylenol or ibuprofen for pain or fever. Take the prednisone as prescribed. You may also consider a decongestant such as Sudafed or an intranasal steroid such as Flonase. Rest and stay hydrated. Follow up with your PCP in 7 days if symptoms are not improving. Go to the ER immediately if you develop shortness of breath, difficulty swallowing, or any other concerning symptoms. Prescriptions: New prednisone 20 mg tablet 40 mg PO DAILY 5 Days Qty: 10 0RF Follow-up/Referrals: PHYSICIAN,WIENER PACKER [Primary Care Provider] - Time of Disposition: 09:31
== END 2024-10-20 09:32 | disposition home or self-care (01) ==
PROVIDERS: Emergency Provider Nurse Practitioner
DX: J06.9 Acute upper respiratory infection, unspecified (principal); J45.909 Unspecified asthma, uncomplicated
CPT/HCPCS: 99213; G0463